=== PATIENT | female | born 1985 | race Caucasian/White ===

== ENCOUNTER 2019-11-08 04:09 | Emergency (ER) | payer OTHER ==
[~2019-11-08] VITALS: Ht 165.1 cm; Wt 135.2 kg
[2019-11-08] MEDS ORDERED: ALBUTEROL FS 2.5 MG/3 ML VIAL.NEB ONE ×2 (04:17→05:40)
[2019-11-08] MEDS ORDERED: IPRATROPIUM NEB FS 0.5 MG/2.5 ML AMPUL.NEB ONE (04:17)
--- NOTE | 2019-11-08 04:17 | NUR ---
PATIENT CAME TO ER BED W/ A GENTLEMAN 9 C/O SOB. PT STATES THAT SHE HAS HAD ASTHMA ATTACKS IN THE PAST. PT STATES SHE TOOK 2 PUFFS OF RESCUE INHALERS AND A WARM SHOWER W/ NO RELIEF. PT IS AAOX4. EXPIRATORY WHEEZES CAN BE AUSCULTATED. CONNECTED TO MONITOR.
[2019-11-08] MEDS ORDERED: predniSONE 20 MG TABLET ONE (04:21)
--- NOTE | 2019-11-08 04:22 | NUR ---
RT AT BEDSIDE FOR BREATHING TREATMENT
--- NOTE | 2019-11-08 04:26 | NUR ---
REFRIGERATOR MOVER AT BEDSIDE FOR BLOOD DRAW
[2019-11-08] MEDS ORDERED: predniSONE 20 MG TABLET PO ONE (04:30)
[2019-11-08] MEDS ORDERED: IPRATROPIUM NEB FS 0.5 MG/2.5 ML AMPUL.NEB NEB ONE (04:30)
[2019-11-08] MEDS ORDERED: ALBUTEROL FS 2.5 MG/3 ML VIAL.NEB NEB ONE (04:30)
[2019-11-08 04:36] LABS: BASOPHILS % (AUTO) 0.4 % (0.0-2.0); EOSINOPHILS % (AUTO) 1.2 % (0.0-6.0); HEMATOCRIT 40 % (33-45); LYMPHOCYTES # (AUTO) 2.5 /CMM (0.8-4.8); LYMPHOCYTES % (AUTO) 28.2 % (20.0-44.0); MEAN CORPUSCULAR HGB CONC 33 g/dl (31.0-36.0); MEAN CORPUSCULAR VOLUME 83 fL (82-100); MONOCYTES # (AUTO) 0.8 /CMM (0.1-1.30); MONOCYTES % (AUTO) 8.7 % (2.0-12.0); NEUTROPHILS # (AUTO) 5.5 /CMM (1.8-8.9); NEUTROPHILS % (AUTO) 61.5 % (43.0-81.0); PLATELET COUNT (AUTO) 251 /CMM (150-450); RED BLOOD CELL COUNT(AUTO) 4.77 MIL/uL (4.0-5.2); WHITE BLOOD COUNT (AUTO) 8.9 K/uL (4.3-11.0)
--- NOTE | 2019-11-08 04:38 | NUR ---
XRAY AT BEDSIDE
[2019-11-08 04:43] LABS: CALCIUM, SERUM 9.2 mg/dL (8.5-10.1); CREATININE 1.3 mg/dL (0.6-1.3); POTASSIUM 4.2 mmol/L (3.5-5.1)
[2019-11-08] MEDS ORDERED: ALBUTEROL FS 2.5 MG/3 ML VIAL.NEB CONTNEB ONE (06:00)
[2019-11-08] MEDS ORDERED: IV NS 0.9% 1,000 ML BAG IV ONE (07:00)
--- NOTE | 2019-11-08 07:24 | NUR ---
ASSESSED PT ON BED, PT IS AAOX4, NOT IN RESPIRATORY DISTRESS, ON LINING INSERTER, KEPT RESTED AND COMFORTABLE, WILL CONTINUE TO MONITOR.
[2019-11-08 08:44] VITALS: BP 131/81
--- NOTE | 2019-11-08 08:44 | NUR ---
IV removed. Catheter intact and site benign. Pressure and 4x4 applied to site. No bleeding noted. Patient discharged to home in stable condition. Written and verbal after care instructions given. Patient verbalizes understanding of instruction.
== END 2019-11-08 08:45 | disposition home or self-care (01) ==
LOC: ER 04:10
DX: J20.8 Acute bronchitis due to other specified organisms (principal); Z98.890 Other specified postprocedural states; Z88.8 Allergy status to other drugs, medicaments and biological substances
CPT/HCPCS: 36415; 71045; 80048; 85025; 85378; 87804 ×2; 94640 ×2; 99285; J7030; J7512